=== PATIENT | male | born 1980 | race Caucasian/White ===

== ENCOUNTER 2020-05-04 09:54 | Observation (INO) | payer OTHER, SELFPAY ==
[2020-05-04] VITALS (13 sets, daily range): BP systolic 129–156; BP diastolic 67–94; PULSE 61–84; RESP 10–19; TEMP 36.7–38.4; O2SAT 92–100; BMI 25.7
--- NOTE | 2020-05-04 | PATH_ITS ---
[facility] Accession Number: [id number] . 01 Material submitted: . appendix - APPENDIX . 01 Clinical history: . APPENDICITIS . 02 Diagnosis: Appendix, Appendectomy: Acute suppurative appendicitis with perforation and serositis. Negative for dysplasia and malignancy. V 05/08/2020 1237 Local . 02 Electronically signed: . Jasmin Jimenez MD, Pathologist NPI- [id number] . 01 Gross description: . Received in formalin, labeled appendix, is a ruptured appendix (length-6.5 cm, diameter-0.6 cm) with garcia-kyle, focally eroded and exudate-covered dull serosa with attached mesoappendix (up to 2.5 cm in depth). The resection margin is received open. The ruptured site (1.0 x 0.6 cm) is identified 1.0 cm from the tip and 3.7 cm from the resection margin. The lumen is void of contents. The wall is up to 0.1 cm thick. No nodules, masses or lesions are identified. The resection margin is inked blue. Section code: (A1) resection margin en face and three brand representative serial sections; (A2) one-half of the bivalved tip. ([id number]) /V 05/07/2020 1025 Local . 02 Pathologist provided ICD-10: K35.80 . 02 CPT . 505867 Performed at: 01 [facility] [address] [place] [address], [place], [place] [id number] MD Esau Irving MD Phone: [phone] Performed at: 02 [facility] [address] [address] [place], [place] [id number] MD Jasmin Jimenez MD Phone: [phone]
--- NOTE | 2020-05-04 10:19 | PC.NURSE ---
patient states he was doing an ab workout and some time afterwards he noticed increasing abdominal pain in the right lower quadrant. He states the pain is going down into his groin and his testicle hurts on the right side. He states he is having urinairy frequency and if feels like he always has to go.
--- NOTE | 2020-05-04 10:56 | DI.CT.S_ITS ---
PROCEDURE: CT ABDOMEN PELVIS W CON INDICATIONS: Right lower quadrant pain TECHNIQUE: After the administration of oral and intravenous contrast, 5 mm thick sections acquired from the diaphragms to the symphysis. 5 mm thick coronal and sagittal reformats were performed. For radiation dose reduction, the following was used: automated exposure control, adjustment of mA and/or kV according to patient size. COMPARISON: None. FINDINGS: Image quality: Diagnostic. ABDOMEN: Lung bases: Lung bases are clear. Heart size is normal. Solid organs: The liver is slightly hypodense when compared to the spleen. Scattered foci of low attenuation are identified within the liver that are predominantly seen within the left hepatic lobe that are too small to adequately characterize, but probably represent small cysts. There is a more vague area of low attenuation evident near the griffin hepatis involving the posterior aspect of the medial segment of the left hepatic lobe (image 22, series 2), which is not adequately characterize. The gallbladder is normal in size. The spleen appears to be within normal limits. The pancreas is unremarkable. The adrenals are within normal limits. There appears to be a complex left renal cyst that measures up to approximately 2.9 cm and appears to contain a thin septation. The kidneys are otherwise unremarkable. There is no hydronephrosis. Peritoneum and bowel: There may be a small hiatal hernia. The stomach is otherwise unremarkable. The small bowel loops are nondilated. A moderate to large amount of residual stool is seen within the colon. There is edema identified within the right paracolic gutter with a small amount of ascites evident. A calcification within the right lower quadrant is present, measuring up to approximately 1.3 cm (image 63, series 2). The appendix is not clearly identified. However, this calcification probably resides within a dilated appendix. No loculated or drainable fluid collections are evident. There is no definite free air. A small fat containing periumbilical hernia may be present. Nodes and vessels: No retroperitoneal or mesenteric adenopathy. Aorta and inferior vena cava are normal in caliber. Bones: No acute fracture or suspicious osseous lesion is identified. Mild degenerative changes of the lumbar spine are present. PELVIS: Genitourinary: Bladder wall thickness is borderline thickened. Miscellaneous: No inguinal hernias or adenopathy. A small amount of free fluid is seen within the pelvis. There is no drainable or loculated fluid collection. Bones: No suspicious bony lesions. No acute pelvic fractures are evident. There are mild degenerative changes of the bilateral hips. IMPRESSION: 1. Moderate inflammation and mild ascites within the right lower quadrant at the base of the cecum is highly suggestive of acute appendicitis with an appendicolith. 2. No abscess or drainable fluid collection. Early appendiceal perforation cannot be excluded, given the ascites. 3. Mild prominence of the wall of the urinary bladder. Please correlate clinically to exclude cystitis. 4. Probable hepatic steatosis. 5. Vague area decreased density within the left hepatic lobe probably represents a focal area of more prominent fatty infiltration. Other etiologies cannot be excluded. MRI is recommended for further evaluation, which may be performed on a nonemergent basis. 6. Mildly complex left renal cyst. MRI of the kidneys with contrast following a renal mass protocol is recommended for further evaluation, which also may be performed on a nonemergent basis. 7. Small hiatal hernia. The 8. Probable constipation. No bowel obstruction. Dictated by: Farhan Lamb M.D. on 05/04/2020 at 10:44 Approved by: Farhan Lamb M.D. on 05/04/2020 at 10:50
--- NOTE | 2020-05-04 10:58 | ED.ABDPAIN ---
HPI - Abdominal Pain General Chief Complaint: Abdominal Pain Stated Complaint: Appendacitis Time Seen by Provider: 05/04/20 10:09 Source: patient and family Mode of arrival: Ambulatory History of Present Illness HPI narrative: Patient had slow onset of right lower quadrant pain radiating down to the right testicle starting yesterday 3:00 p.m.. Nausea but no vomiting. No fever chills. Has urinary frequency but no dysuria. No back or flank pain. Related Data Previous Rx's Medication Instructions Recorded docusate sodium 100 mg PO BID #20 cap 05/04/20 oxycodone 5 mg PO Q4H PRN #30 tab 05/04/20 Allergies Allergy/AdvReac Type Severity Reaction Status Date / Time NSAIDS (Non-Steroidal Allergy Anaphylaxis Verified 05/04/20 10:16 Anti-Inflamma Review of Systems Review of Systems Narrative: GENERAL: Denies chills, fatigue, malaise, fever, sweats. HEENT: Denies sinus pain, ear pain, sore throat, difficulty swallowing, dizziness. RESPIRATORY: Denies dyspnea, cough, wheezing, hemoptysis, sputum. CARDIOVASCULAR: Denies chest pain, palpitations, orthopnea, edema, GASTROINTESTINAL: Complains of nausea but no vomiting. Has right lower quadrant pain. Hematochezia no bloody stools : Complains of urinary frequency but no dysuria MUSCULOSKELETAL: denies weakness, joint pain, or bony pain SKIN: Denies rash, skin lesions, or other NEUROLOGIC: Denies weakness, headache, numbness, change in speech, confusion, seizures, incoordination. PSYCHIATRIC: No concerning psychosocial issues. ROS Unobtainable: All systems reviewed & are unremarkable except as noted in HPI and below Patient History Social History household members: spouse and children Smoking Status: Never smoker Smoking Status: Never smoker alcohol intake frequency: 0-2 drinks per day Substance Use Type: does not use Exam Narrative Exam Narrative: GENERAL: patient appears stated age. Well-nourished, well-developed patient, in no distress, not toxic HEAD: Atraumatic. Normocephalic. EYES: Pupils equal round and reactive. Extraocular motions intact. No scleral icterus. No injection or drainage. ENT: Nose without bleeding, purulent drainage. Throat without erythema, tonsillar hypertrophy or exudate. Airway patent. NECK: Trachea midline. Non tender CARDIOVASCULAR: Regular rate and rhythm without murmurs, gallops, or rubs. RESPIRATORY: Clear to auscultation. Breath sounds equal bilaterally. No wheezes, rales, or rhonchi. GASTROINTESTINAL: Reproducible right lower quadrant tenderness, positive McBurney's point tenderness. No peritoneal signs. Bowel sounds normal. EXTREMITIES: No edema or joint tenderness. BACK: Nontender without deformity or crepitance. No flank tenderness. NEURO: AOx3. SKIN: No rash or erythema of visible areas Initial Vital Signs Initial Vital Signs: Vital Signs Temperature 98.5 F 05/04/20 10:13 Pulse Rate 84 05/04/20 10:13 Respiratory Rate 18 05/04/20 10:13 Blood Pressure 137/88 05/04/20 10:13 Pulse Oximetry 100 05/04/20 10:13 Course Orders Ordered: Discontinued Medications Acetaminophen (Tylenol) 975 mg PO NOW ONE Stop: 05/04/20 14:16 Bupivacaine HCl/Epinephrine Bitart (Sensorcaine 0.25% W/ Epi (Pf)) 30 ml INJ INTRA-OP ONE Stop: 05/04/20 14:59 Last Admin: 05/04/20 14:58 Dose: 30 ml Documented by: JEREMY Fentanyl (Sublimaze) 0 mcg IV Q5MIN PRN PRN Reason: Pain, Severe (7-10) Gabapentin (Neurontin) 300 mg PO NOW ONE Stop: 05/04/20 13:22 Last Admin: 05/04/20 14:11 Dose: 300 mg Documented by: ADAMOAGLAndrey Hydromorphone HCl (Dilaudid) 0 mg IV Q5MIN PRN PRN Reason: Pain, Mild (1-3) Sodium Chloride (Normal Saline 0.9%) 1,000 mls @ 1,000 mls/hr IV BOLUS ONE Stop: 05/04/20 11:54 Last Infusion: 05/04/20 13:30 Dose: 0 mls/hr Documented by: Admin: 05/04/20 11:19 Dose: 1,000 mls/hr Documented by: GO Metronidazole (Flagyl) 500 mg in 100 mls @ 100 mls/hr IV NOW ONE Stop: 05/04/20 12:54 Last Infusion: 05/04/20 13:31 Dose: 0 mls/hr Documented by: Admin: 05/04/20 12:29 Dose: 100 mls/hr Documented by: GO Ceftriaxone Sodium/Dextrose (Rocephin) 1 gm in 50 mls @ 100 mls/hr IV NOW ONE Stop: 05/04/20 12:24 Last Infusion: 05/04/20 12:30 Dose: 0 mls/hr Documented by: Admin: 05/04/20 12:02 Dose: 100 mls/hr Documented by: GO Lactated Ringer's (Lactated Ringers) 1,000 mls @ 42 mls/hr IV CONT SUDHIR Last Infusion: 05/04/20 16:48 Dose: 0 mls/hr Documented by: Admin: 05/04/20 14:10 Dose: 42 mls/hr Documented by: SHAGUFTA Lactated Ringer's (Lactated Ringers) 1,000 mls @ 120 mls/hr IV CONT SUDHIR Morphine Sulfate (Morphine) 4 mg IV NOW ONE Stop: 05/04/20 10:56 Last Admin: 05/04/20 11:18 Dose: 4 mg Documented by: GO Morphine Sulfate (Morphine) 4 mg IV NOW ONE Stop: 05/04/20 13:51 Last Admin: 05/04/20 13:56 Dose: 4 mg Documented by: PELON Ondansetron HCl (Zofran) 4 mg IV NOW ONE Stop: 05/04/20 10:56 Last Admin: 05/04/20 11:19 Dose: 4 mg Documented by: GO Ondansetron HCl (Zofran) 4 mg IV NOW PRN PRN Reason: Nausea And Vomiting Oxycodone HCl (Percolone) 5 mg PO PACUNOW PRN PRN Reason: Mild or moderate pain Last Admin: 05/04/20 16:05 Dose: 5 mg Documented by: SHAGUFTA Scopolamine (Transderm-Scop) 1 patch TOP NOW ONE Stop: 05/04/20 13:22 Last Admin: 05/04/20 14:11 Dose: 1 patch Documented by: SHAGUFTA Consultations Consultation #1: General surgery Dr Martinez at bedside Time: 12:38 Vital Signs Vital signs: Vital Signs - 8 hr 05/04/20 10:13 05/04/20 11:30 05/04/20 11:38 Temperature 98.5 F Pulse Rate 84 61 70 Respiratory Rate 18 18 Blood Pressure 137/88 Blood Pressure [Left Arm] 148/92 H 156/94 H Pulse Oximetry 100 100 97 MDM - Abdominal Pain Differential Diagnosis Differential diagnosis: Likely acute appendicitis and calculus of kidney Lab Data Result diagrams: 05/04/20 11:10 05/04/20 11:10 Labs: Lab Results 05/04/20 05/04/20 05/04/20 Range/Units 11:10 11:10 12:37 WBC 11.9 H (4.5-11.0) X10^3/uL RBC 4.99 (4.5-5.9) X10^6/uL Hgb 15.5 (13.5-17.5) g/dL Hct 44.8 (41-53) % MCV 89.8 (80-100) fL MCH 31.1 (26-34) PG MCHC 34.6 (30-36) % RDW 12.6 (11.6-14.8) % Plt Count 261 (150-400) X10^3/uL Neut % (Auto) 77.1 H (50-75) % Lymph % (Auto) 10.7 L (25-40) % [place] % (Auto) 11.0 (3-14) % Eos % (Auto) 0.6 L (2-4) % Baso % (Auto) 0.6 (0-2) % Neut # (Auto) 9200 H (9806-6788) /uL Lymph # (Auto) 1300 (6155-0237) /uL [place] # (Auto) 1300 H (0-900) /uL Eos # (Auto) 100 (0-450) /uL Baso # (Auto) 100 (0-100) /uL Sodium 138 (137-145) mmol/L Potassium 4.6 (3.4-5.1) mmol/L Chloride 103 (98-107) mmol/L Carbon Dioxide 28 (22-32) mmol/L BUN 10 (9-20) mg/dL Creatinine 0.99 (0.66-1.25) mg/dL Estimated GFR > 60.0 (>60) mL/min BUN/Creatinine Ratio 10.1 (6-22) Glucose 106 H (70-100) mg/dL Calcium 9.6 (8.4-10.2) mg/dL Total Bilirubin 1.0 (0.2-1.3) mg/dL AST 22 (17-59) IU/L ALT 19 (<50) IU/L Alkaline Phosphatase 74 (38-126) U/L Total Protein 8.2 (6.3-8.2) g/dL Albumin 4.6 (3.5-5.0) g/dL Globulin 3.6 (1.7-4.1) g/dL Albumin/Globulin Ratio 1.3 (1.0-2.8) Lipase 41 (23-300) U/L COVID-19 PCR Negative (Negative) Point of care testing: Urine Dip Bedside Urine Glucose Negative Bedside Urine Bilirubin - Negative Bedside Urine Ketone + 15 Urine Specific [place] 1.010 Bedside Urine Occult Blood - Negative Bedside Urine pH 7.0 Bedside Urine Protein - Negative Bedside Urine Urobilinogen - Negative Bedside Urine Nitrite - Negative Bedside Urine Leukocytes - Negative Esterase Imaging Data CT scan - abdomen/pelvis: Radiologist's Impression: [place] [address] CT Scan Report Signed Patient: Luis Antonio KingstonnMR#: [id number] : 1980Acct:[id number] Age/Sex: 39 / MDate of Service: 05/04/20 Loc: ED Accession Number: [id number] Procedure: CT abdomen pelvis w con Ordering Provider: Nitin Ordaz MD PROCEDURE: CT ABDOMEN PELVIS W CON INDICATIONS: Right lower quadrant pain TECHNIQUE: After the administration of oral and intravenous contrast, 5 mm thick sections acquired from the diaphragms to the symphysis. 5 mm thick coronal and sagittal reformats were performed. For radiation dose reduction, the following was used: automated exposure control, adjustment of mA and/or kV according to patient size. COMPARISON: None. FINDINGS: Image quality: Diagnostic. ABDOMEN: Lung bases: Lung bases are clear. Heart size is normal. Solid organs: The liver is slightly hypodense when compared to the spleen. Scattered foci of low attenuation are identified within the liver that are predominantly seen within the left hepatic lobe that are too small to adequately characterize, but probably represent small cysts. There is a more vague area of low attenuation evident near the griffin hepatis involving the posterior aspect of the medial segment of the left hepatic lobe (image 22, series 2), which is not adequately characterize. The gallbladder is normal in size. The spleen appears to be within normal limits. The pancreas is unremarkable. The adrenals are within normal limits. There appears to be a complex left renal cyst that measures up to approximately 2.9 cm and appears to contain a thin septation. The kidneys are otherwise unremarkable. There is no hydronephrosis. Peritoneum and bowel: There may be a small hiatal hernia. The stomach is otherwise unremarkable. The small bowel loops are nondilated. A moderate to large amount of residual stool is seen within the colon. There is edema identified within the right paracolic gutter with a small amount of ascites evident. A calcification within the right lower quadrant is present, measuring up to approximately 1.3 cm (image 63, series 2). The appendix is not clearly identified. However, this calcification probably resides within a dilated appendix. No loculated or drainable fluid collections are evident. There is no definite free air. A small fat containing periumbilical hernia may be present. Nodes and vessels: No retroperitoneal or mesenteric adenopathy. Aorta and inferior vena cava are normal in caliber. Bones: No acute fracture or suspicious osseous lesion is identified. Mild degenerative changes of the lumbar spine are present. PELVIS: Genitourinary: Bladder wall thickness is borderline thickened. Miscellaneous: No inguinal hernias or adenopathy. A small amount of free fluid is seen within the pelvis. There is no drainable or loculated fluid collection. Bones: No suspicious bony lesions. No acute pelvic fractures are evident. There are mild degenerative changes of the bilateral hips. IMPRESSION: 1. Moderate inflammation and mild ascites within the right lower quadrant at the base of the cecum is highly suggestive of acute appendicitis with an appendicolith. 2. No abscess or drainable fluid collection. Early appendiceal perforation cannot be excluded, given the ascites. 3. Mild prominence of the wall of the urinary bladder. Please correlate clinically to exclude cystitis. 4. Probable hepatic steatosis. 5. Vague area decreased density within the left hepatic lobe probably represents a focal area of more prominent fatty infiltration. Other etiologies cannot be excluded. MRI is recommended for further evaluation, which may be performed on a nonemergent basis. 6. Mildly complex left renal cyst. MRI of the kidneys with contrast following a renal mass protocol is recommended for further evaluation, which also may be performed on a nonemergent basis. 7. Small hiatal hernia. The 8. Probable constipation. No bowel obstruction. Dictated by: Farhan Lamb M.D. on 05/04/2020 at 10:44 Approved by: Farhan Lamb M.D. on 05/04/2020 at 10:50 Discharge Plan Departure Patient Disposition: Admitted As Inpatient Clinical Impression: Acute appendicitis Qualifiers: Acute appendicitis type: unspecified acute appendicitis type Qualified Code(s): K35.80 - Unspecified acute appendicitis Discharge Date/Time: 05/04/20 14:03 Instructions: DI for an Appendectomy, DI for Prescription Opioid Use, [facility]: Wound Care Referrals: Rowan Martinez MD [Physician] - (Please call on Wednesday to make a follow-up appointment to be seen in the next 1-2 weeks.) Admit Date/Time: 05/04/20 13:30 Admit Provider: Rowan Martinez Forms: Surgery Discharge
[2020-05-04] MEDS: MORPHINE 4 MG/ML INJ IV ×2 (11:18→13:56)
[2020-05-04] MEDS: SODIUM CHLORIDE 0.9% 1,000 ML 1000 ML IV (11:19)
[2020-05-04] MEDS: ONDANSETRON 4 MG/2 ML INJ IV (11:19)
[2020-05-04 11:20] LABS: Add Manual Diff / Slide Review NO; Basophils Absolute Auto 100 /uL (0-100); Basophils Percent Auto 0.6 % (0-2); Eosinophils Absolute Auto 100 /uL (0-450); Eosinophils Percent Auto 0.6 % (2-4); Hematocrit 44.8 % (41-53); Hemoglobin 15.5 g/dL (13.5-17.5); Lymphocytes Absolute Auto 1300 /uL (1100-4500); Lymphocytes Percent Auto 10.7 % (25-40); Mean Corpuscular HGB Conc 34.6 % (30-36); Mean Corpuscular Hemoglobin 31.1 PG (26-34); Mean Corpuscular Volume 89.8 fL (80-100); Monocytes Absolute Auto 1300 /uL (0-900); Neutrophils Absolute Auto 9200 /uL (1500-7000); Neutrophils Percent Auto 77.1 % (50-75); Platelet Count 261 X10^3/uL (150-400); Red Blood Cell Count 4.99 X10^6/uL (4.5-5.9); Red Cell Distribution Width 12.6 % (11.6-14.8); White Blood Cell Count 11.9 X10^3/uL (4.5-11.0)
[2020-05-04 11:33] LABS: Alanine Aminotransferase 19 IU/L (<50); Albumin 4.6 g/dL (3.5-5.0); Albumin Globulin Ratio 1.3 (1.0-2.8); Alkaline Phosphatase 74 U/L (38-126); Aspartate Aminotransferase 22 IU/L (17-59); BUN Creatinine Ratio 10.1 (6-22); Blood Urea Nitrogen 10 mg/dL (9-20); Calcium 9.6 mg/dL (8.4-10.2); Carbon Dioxide 28 mmol/L (22-32); Chloride 103 mmol/L (98-107); Estimated Glomerular Filt Rate > 60.0 mL/min (>60); Globulin 3.6 g/dL (1.7-4.1); Glucose 106 mg/dL (70-100); HEMOLYSIS < 15 (0-50); Lipase 41 U/L (23-300); Potassium 4.6 mmol/L (3.4-5.1); Sodium 138 mmol/L (137-145); Total Protein 8.2 g/dL (6.3-8.2)
[2020-05-04] MEDS: CEFTRIAXONE 1 GM/50 ML FROZ.PIGGY IV (12:02)
[2020-05-04] MEDS: metroNIDAZOLE 500 MG/100 ML PIGGYBACK 100 MG IV (12:29)
--- NOTE | 2020-05-04 12:45 | PM.HP.1 ---
History of Present Illness History of Present Illness Date Patient Seen: 05/04/20 Time Patient Seen: 12:45 Chief complaint: Appendacidis Narrative: This is a 39-year-old man with history of C3 spinal fusion, and anteflexed NSAIDs, with no other medical surgical history who presented to the ER this afternoon after having periumbilical and right lower quadrant pain that started yesterday at 3:00 p.m.. He has general feeling of malaise, denies nausea, vomiting, constipation, diarrhea. CT scan in the ER is consistent with acute appendicitis. White blood cell count is slightly elevated at 11.9. Past medical history: Denies Past surgical history: C3 spinal fusion Medications: Denies Family medical history: Denies any colorectal or bowel disorders Social history: Alcohol one drink per day, denies tobacco, denies other substances Allergies: NSAIDs, anaphylaxis ROS: Thirteen system review is otherwise negative other than as mentioned below and in HPI. PE: GENERAL: Alert, comfortable. Appears stated age. Answers questions promptly and appropriately. Vital signs noted. HENT: Normocephalic, atraumatic. Hearing intact. Oral mucosa is pink and moist. EYES: Conjunctiva pink, sclera white, no periorbital swelling. CARDIOVASCULAR: Regular rate. No pedal edema. RESPIRATORY: Non-tachypneic, breathing comfortably on room air. GASTROINTESTINAL: Abdomen soft and non-distended; focal tenderness to palpation in the right lower quadrant, negative Rovsing sign GENITALURINARY: No flank tenderness. MUSCULOSKELETAL: Equal tone and mass bilaterally. SKIN: Warm, dry, soft, appropriate color for ethnicity. No other lesions, rashes, or wounds. NEURO: Alert and Oriented X 3. No gross sensory deficits, or cognitive issues. PSYCH: Appropriate affect and mood. Patient History Family & Social History Safety & Behavioral: Feels Safe in Current Yes Environment Been Physically Hurt or No Threatened By a Person Tobacco & Substance use: Smoking Status Never smoker alcohol intake frequency 0-2 drinks per day Substance Use Type does not use Meds Home Medications and Allergies Allergies Allergy/AdvReac Type Severity Reaction Status Date / Time NSAIDS (Non-Steroidal Allergy Anaphylaxis Verified 05/04/20 10:16 Anti-Inflamma Exam Vital Signs (past 8 hours): - 05/04/20 10:13 05/04/20 11:30 05/04/20 11:38 Temperature 98.5 F Pulse Rate 84 61 70 Respiratory Rate 18 18 Blood Pressure 137/88 Blood Pressure [Left Arm] 148/92 H 156/94 H Pulse Oximetry 100 100 97 Oxygen Delivery Method Room Air Objective Imaging CT scan - abdomen: My impression: Acute appendicitis, may be perforated, fecalith in the appendix Radiologist's impression: [address] [address] [address] Scan Report Signed Patient: Luis Antonio KingstonnMR#: [id number] : 1980Acct:[id number] Age/Sex: 39 / MDate of Service: 05/04/20 Loc: ED Accession Number: [id number] Procedure: CT abdomen pelvis w con Ordering Provider: Nitin Ordaz MD PROCEDURE: CT ABDOMEN PELVIS W CON INDICATIONS: Right lower quadrant pain TECHNIQUE: After the administration of oral and intravenous contrast, 5 mm thick sections acquired from the diaphragms to the symphysis. 5 mm thick coronal and sagittal reformats were performed. For radiation dose reduction, the following was used: automated exposure control, adjustment of mA and/or kV according to patient size. COMPARISON: None. FINDINGS: Image quality: Diagnostic. ABDOMEN: Lung bases: Lung bases are clear. Heart size is normal. Solid organs: The liver is slightly hypodense when compared to the spleen. Scattered foci of low attenuation are identified within the liver that are predominantly seen within the left hepatic lobe that are too small to adequately characterize, but probably represent small cysts. There is a more vague area of low attenuation evident near the griffin hepatis involving the posterior aspect of the medial segment of the left hepatic lobe (image 22, series 2), which is not adequately characterize. The gallbladder is normal in size. The spleen appears to be within normal limits. The pancreas is unremarkable. The adrenals are within normal limits. There appears to be a complex left renal cyst that measures up to approximately 2.9 cm and appears to contain a thin septation. The kidneys are otherwise unremarkable. There is no hydronephrosis. Peritoneum and bowel: There may be a small hiatal hernia. The stomach is otherwise unremarkable. The small bowel loops are nondilated. A moderate to large amount of residual stool is seen within the colon. There is edema identified within the right paracolic gutter with a small amount of ascites evident. A calcification within the right lower quadrant is present, measuring up to approximately 1.3 cm (image 63, series 2). The appendix is not clearly identified. However, this calcification probably resides within a dilated appendix. No loculated or drainable fluid collections are evident. There is no definite free air. A small fat containing periumbilical hernia may be present. Nodes and vessels: No retroperitoneal or mesenteric adenopathy. Aorta and inferior vena cava are normal in caliber. Bones: No acute fracture or suspicious osseous lesion is identified. Mild degenerative changes of the lumbar spine are present. PELVIS: Genitourinary: Bladder wall thickness is borderline thickened. Miscellaneous: No inguinal hernias or adenopathy. A small amount of free fluid is seen within the pelvis. There is no drainable or loculated fluid collection. Bones: No suspicious bony lesions. No acute pelvic fractures are evident. There are mild degenerative changes of the bilateral hips. IMPRESSION: 1. Moderate inflammation and mild ascites within the right lower quadrant at the base of the cecum is highly suggestive of acute appendicitis with an appendicolith. 2. No abscess or drainable fluid collection. Early appendiceal perforation cannot be excluded, given the ascites. 3. Mild prominence of the wall of the urinary bladder. Please correlate clinically to exclude cystitis. 4. Probable hepatic steatosis. 5. Vague area decreased density within the left hepatic lobe probably represents a focal area of more prominent fatty infiltration. Other etiologies cannot be excluded. MRI is recommended for further evaluation, which may be performed on a nonemergent basis. 6. Mildly complex left renal cyst. MRI of the kidneys with contrast following a renal mass protocol is recommended for further evaluation, which also may be performed on a nonemergent basis. 7. Small hiatal hernia. The 8. Probable constipation. No bowel obstruction. Dictated by: Farhan Lamb M.D. on 05/04/2020 at 10:44 Approved by: Farhan Lamb M.D. on 05/04/2020 at 10:50 Labs Result Diagrams: 05/04/20 11:10 05/04/20 11:10 Labs: Laboratory Results - last 24 hr 05/04/20 05/04/20 11:10 11:10 WBC 11.9 H RBC 4.99 Hgb 15.5 Hct 44.8 MCV 89.8 MCH 31.1 MCHC 34.6 RDW 12.6 Plt Count 261 Neut % (Auto) 77.1 H Lymph % (Auto) 10.7 L [place] % (Auto) 11.0 Eos % (Auto) 0.6 L Baso % (Auto) 0.6 Neut # (Auto) 9200 H Lymph # (Auto) 1300 [place] # (Auto) 1300 H Eos # (Auto) 100 Baso # (Auto) 100 Sodium 138 Potassium 4.6 Chloride 103 Carbon Dioxide 28 BUN 10 Creatinine 0.99 Estimated GFR > 60.0 BUN/Creatinine Ratio 10.1 Glucose 106 H Calcium 9.6 Total Bilirubin 1.0 AST 22 ALT 19 Alkaline Phosphatase 74 Total Protein 8.2 Albumin 4.6 Globulin 3.6 Albumin/Globulin Ratio 1.3 Lipase 41 Assessment & Plan Assessment and plan (1) Acute appendicitis: Qualifiers: Acute appendicitis type: unspecified acute appendicitis type Qualified Code(s): K35.80 - Unspecified acute appendicitis Status: Acute Assessment & Plan narrative: Is a 39-year-old man with acute appendicitis. Risks and benefits of laparoscopic possible open appendectomy a been discussed with the patient alternatives of treating with antibiotics were discussed. I explained that since he has a fecalith the appendix he has 100% chance of recurrent appendicitis if treated with antibiotics only. Explained that he may have a perforation, which increases the risk of complication including postop bowel obstruction or abscess. The patient desires to proceed with appendectomy. Plan: NPO, IV fluids, IV Zosyn, rapid COVID-19 test Proceed OR for laparoscopic possible open appendectomy COVID-19 COVID-19 status: Result pending Time Spent With Patient Time with patient: 25 - 35 minutes Quality VTE Deep Vein Thrombosis/Pulmonary Embolism Present on Admission: No
[2020-05-04 14:05] LABS: COVID19 -Nasal RAPID Negative (Negative)
[2020-05-04] MEDS: LACTATED RINGERS 1,000 ML 42 ML IV (14:10)
[2020-05-04] MEDS: GABAPENTIN 300 MG CAPSULE PO (14:11)
[2020-05-04] MEDS: SCOPOLAMINE 1 PATCH TOP (14:11)
--- NOTE | 2020-05-04 14:52 | SUR.OPER ---
Supine on padded OR bed, head on pillow, arm padded and tucked at side, legs uncrossed, safety belt at thigh, tape over blanket over lower legs .
[2020-05-04] MEDS: BUPIVACAINE 0.25% W/ EPI 30 ML VIAL INJ (14:58)
--- NOTE | 2020-05-04 15:42 | PM.OP.1 ---
Operative Date/Time/Diagnoses Date of procedure: 05/04/20 Time of procedure: 15:42 Pre-op diagnosis: Acute appendicitis Post-op diagnosis: other (acute appendicitis with focal perforation) Procedure & Clinicians Procedure: Laparoscopic appendectomy Same procedure as scheduled: Yes Indications: Acute appendicitis Surgeon: Rowan Martinez Click Yes if Unassisted: Yes Anesthesia Type: General Operative Notes Findings: Perforated mid appendix with fecalith at the site of perforation, serobilious fluid in the right lower quadrant and pelvis Specimen(s): other (appendix, fecolith) Estimated Blood Loss (mL): 1 Procedure in detail: The patient was brought into the operating room and placed supine on the OR table. Sequential compression devices were placed on both legs and turned on. Appropriate perioperative antibiotics were given prior to the start of surgery. General anesthesia was induced the patient was intubated. Hatfield catheter was placed sterilely in the bladder. The abdomen was prepped and draped in sterile fashion. Surgical time-out was conducted. Local anesthetic was injected under the skin just superior to the umbilicus and a 5 mm vertical incision was made at this site. The umbilical stalk was grasped with a Elana and elevated. A Veress needle was passed through the fascia into proper position. The position was tested with a saline drop test which was appropriate for intra-abdominal Veress needle placement. The abdomen was then insufflated in the usual fashion. Once insufflated to 15 mm Hg the Veress needle was removed and a 5 mm optical trocar was placed under direct vision using a 5 mm 30 degree scope. Once the camera was inside the abdomen I took a look around. There was no injury from port placement. Two additional ports were placed in a similar fashion in the suprapubic position and left lower quadrant. The umbilical port was upsized to a 12 mm port. In the right lower quadrant there and pelvix murky fluid was seen. The appendix was firm and curled down posterior to the cecum. The patient was placed in Trendelenburg position with right side up. The omentum and small bowel was swept the left and the cecum was exposed. The mid appendix was found to have a perforation and an exposed fecalith. The purulent fluid was suctioned clean, and the fecalith was removed. Starting at the distal tip of the appendix I dissected it free from the abdominal wall and the colon using blunt and sharp dissection with [place] Ligasure. Once I came back to the base of the appendix I carefully dissected it out, protecting the small bowel and the cecum. At no time were we near the ureter. After prolonged dissection the base of the appendix came fully into view where it came into the cecum. The base was clean and narrow. Two 0-PDS endoloops were used to secure the base of the appendix as it entered the cecum. I then used the Ligasure to divide the appendix distal to the endoloops. The appendix was removed through the umbilical port. There was good hemostasis, all free fluid and blood were suctioned out. I used the laparoscopic suture passer and closed the umbilical port site with 0 Vicryl suture through the fascia. At this point the insufflation was removed from the abdomen and the port sites were closed with, 3-O Vicryl in the subcutaneous layers, and 4 Monocryl in the skin. Each port site was sealed with Dermabond. Local anesthetic was given at each of the port sites and in the fascia. This concluded the procedure. At this point the needle sponge and instrument counts were correct. The appendix was passed off the table for pathology. The patient was awakened from anesthesia and extubated. The patient was transferred to the postanesthesia care unit in stable condition. Post-operative Condition: stable Disposition: PACU
[2020-05-04] MEDS: OXYCODONE IR 5 MG TABLET PO (16:05)
== END 2020-05-04 16:30 | disposition home or self-care (01) ==
LOC: ED 12:38 → AC 14:13
PROVIDERS: Admitting Provider Surgery; Emergency Provider Emergency Medicine; Referring Provider Emergency Medicine; Visit Provider Surgery
PROC: 0DTJ4ZZ Resection of Appendix, Percutaneous Endoscopic Approach (ICD-10-PCS; CPT 44970; principal; 2020-05-04 13:00)
DX: K35.32 Acute appendicitis with perforation, localized peritonitis, and gangrene, without abscess (principal); R10.31 Right lower quadrant pain; K38.1 Appendicular concretions; Z11.59 Encounter for screening for other viral diseases
CPT/HCPCS: 44970; 36415; 74177; 80053; 81003; 83690; 85025; 87635; 96365; 96367; 96375; 96376; 99284; 99285; G0378; J0330; J1100; J2250; J2270; J2405; J2704; J3010; Q9967

== ENCOUNTER → 2022-05-14 08:32 | Outpatient (CLI) | payer OTHER, SELFPAY ==
--- NOTE | 2022-05-14 | DI.MRI.S_ITS ---
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 After the administration of contrast, axial and coronal 3D VIBE or T1 spin echo with fat saturation through the brain. COMPARISON: None. FINDINGS: Image quality: Excellent. CSF Spaces: Basal cisterns are patent. A posterior fossa arachnoid cyst can be seen. Ventricles are normal in size and shape. Brain: No midline shift. No intracranial bleeds or masses. No abnormal intracranial enhancement. The brainstem appears normal. Diffusion-weighted images demonstrate no acute ischemic insults. No chronic ischemic insults. Normal intravascular flow voids are present. Skull and face: Calvarial marrow is normal in signal. Orbits appear normal. Sinuses: Sinuses and mastoids appear clear. IMPRESSION: Posterior fossa arachnoid cyst incidentally noted. Otherwise, unremarkable intracranial study. No masses or abnormal enhancement can be seen. Dictated by: Luis Antonio Granda M.D. on 05/14/2022 at 9:37 Approved by: Luis Antonio Granda M.D. on 05/14/2022 at 9:38
== END ==
PROVIDERS: PCP Student in an Organized Health Care Education/Training Program
DX: G93.0 Cerebral cysts (principal)
CPT/HCPCS: 70553